=== PATIENT | female | born 1970 | race Caucasian/White ===

== ENCOUNTER 2018-12-19 13:02 | Emergency (ER) | payer OTHER ==
[2018-12-19 14:47] LABS: URINE PH (Dip) POC 5.5 (5.0-8.5)
[2018-12-19 14:47] LABS: URINE BLOOD (Dip) POC 3+ (NEGATIVE); URINE GLUCOSE (Dip) POC Negative (NEGATIVE); URINE KETONES (Dip) POC Negative (NEGATIVE); URINE LEUKOCYTE EST (Dip) POC 2+ (NEGATIVE); URINE NITRITE (Dip) POC Negative (NEGATIVE); URINE TOTAL PROTEIN POC Trace (NEGATIVE)
[2018-12-19] MEDS: KETOROLAC 30 MG INJ IM (15:09)
== END 2018-12-19 16:47 | disposition home or self-care (01) ==
LOC: FTE 13:02
DX: M54.42 Lumbago with sciatica, left side (principal); M25.512 Pain in left shoulder
CPT/HCPCS: 72100; 73030; 81003; 81025; 96372; 99284-25